=== PATIENT | male | born 1945 | race Caucasian/White ===

== ENCOUNTER 2018-05-03 12:04 | Day surgery (SDC) | payer OTHER ==
[2018-05-03] MEDS ORDERED: LR 1,000 ML IV ONE (12:44)
--- NOTE | 2018-05-03 14:07 | PDANEPAE ---
ANE History of Present Illness 72 yo for lower eus ANE Past Medical History - Cardiovascular History Hx Hypertension: Yes Hx Arrhythmias: No Hx Chest Pain: No Hx Coronary Artery / Peripheral Vascular Disease: Yes Hx CHF / Valvular Disease: Yes Hx Palpitations: No Cardiovascular History Comment: Hx AVR - Pulmonary History Hx COPD: No Hx Asthma/Reactive Airway Disease: No Hx Recent Upper Respiratory Infection: No Hx Oxygen in Use at Home: No Hx Sleep Apnea: No Sleep Apnea Screening Result - Last Documented: Positive - Neurologic History Hx Cerebrovascular Accident: No Hx Seizures: No Hx Dementia: No - Endocrine History Hx Diabetes: Yes Endocrine History Comment: PRE-DIABETIC - Renal History Hx Renal Disorders: No - Liver History Hx Hepatic Disorders: No - Neurological & Psychiatric Hx Hx Neurological and Psychiatric Disorders: No - Cancer History Hx Cancer: No - Congenital Disorder History Hx Congenital Disorders: No - GI History Hx Gastrointestinal Disorders: No - Other Health History Other Health History: NONE - Chronic Pain History Chronic Pain: No - Surgical History Prior Surgeries: CABG X 2 W/AVR 2009. NONE SINCE [facility] ANE Review of Systems Review of Systems: - Exercise capacity METS (RN): 4 METS ANE Patient History - Allergies Allergies/Adverse Reactions: Penicillins Allergy (Severe, Verified 04/29/18 15:42) THROAT SWELLING - Home Medications Home Medications: Allopurinol 04/29/18 [Last Taken 05/02/18] Levothyroxine 04/29/18 [Last Taken 05/02/18] Lisinopril 04/29/18 [Last Taken 05/02/18] Metformin HCl 04/29/18 [Last Taken 05/02/18] Metoprolol Tartrate 04/29/18 [Last Taken 05/02/18] Rosuvastatin Calcium 04/29/18 [Last Taken 05/02/18] - NPO status NPO Since - Liquids (Date): 05/03/18 NPO Since - Liquids (Time): 09:00 NPO Since - Solids (Date): 05/02/18 NPO Since - Solids (Time): 09:00 - Smoking Hx Smoking Status: Never smoked - Family Anes Hx Family Hx Anesthesia Complications: none ANE Labs/Vital Signs - Labs Result Diagrams: 05/03/18 13:28 - Vital Signs Blood Pressure: 148/86 Heart Rate: 84 Respiratory Rate: 16 O2 Sat (%): 94 Height: 5 ft 8 in Weight: 97.522 kg ANE Physical Exam - Airway Neck exam: FROM Mallampati Score: Class 3 Mouth exam: normal dental/mouth exam - Pulmonary Pulmonary: no respiratory distress - Cardiovascular Cardiovascular: regular rate and rhythym - ASA Status ASA Status: III ANE Anesthesia Plan Anesthesia Plan: GA with mask
[2018-05-03] MEDS ORDERED: PROPOFOL/EMULSION 500 MG/50 ML BOTTLE IV ONE (14:09)
[2018-05-03] MEDS ORDERED: NALOXONE HCL 0.4 MG/ML INJ IVP PRN (14:26)
--- NOTE | 2018-05-03 15:01 | PDGENHP ---
History & Physical Chief Complaint: rectal mass History of Present Illness: 72 year old male presents for evaluation of rectal mass Pertinent Past, Social, Family History: See anesthesiology note for details. Relevant Physical Exam: HEENt: anicteric. CV: RRR +s1s2. lungs; CTAB. Abd: soft, nt, + bs. Cardiorespiratory Assessment: ASA 3
[2018-05-03] MEDS ORDERED: INDOMETHACIN 50 MG SUPP PR PRN (15:03)
[2018-05-03] MEDS ORDERED: NS 500 ML IV SCH (15:15)
--- NOTE | 2018-05-03 18:23 | POSTANESTH ---
Post Anesthetic Evaluation Cardiovascular Status: Normal, Stable Respiratory Status: Normal, Stable Level of Consciousness/Mental Status: Can Participate in Eval Pain Control: Adequate, Prn Tx Ordered Nausea/Vomiting Control: Adequate, Prn Tx Ordered Complications Possibly Related to Anesthesia: None Noted
[2018-05-03 18:47] VITALS: BP 155/97
--- NOTE | 2018-05-11 08:03 | GIREPORT ---
[facility] - Endoscopy Department Patient Name: Silvestre Peterson Procedure Date: 05/03/2018 2:00 PM Patient Type: Outpatient Attending MD/ ER Physician: Earl Patel MD Procedure: Lower EUS Indications: Pre-treatment staging for anorectal carcinoma Patient Profile: 72 year old male presents for evaluation of a polypoid lesion in the rectosigmoid colon. Providers: Earl Patel MD Medicines: Monitored Anesthesia Care Complications: No immediate complications. Estimated blood loss: None. Description of Procedure: After obtaining informed consent, the endoscope was passed under direct vision. Throughout the procedure, the patient's blood pressure, pulse, and oxygen saturations were monitored continuously. The Endosonoscope was introduced through the anus and advanced to the sigmoid colon for ultrasound. The lower EUS was accomplished without difficulty. The brice ent tolerated the procedure well. The quality of the bowel preparation was good. The Colonoscope with irrigation channel was introduced through the anus and advanced to the sigmoid colon for ultrasound. Findings: The perianal and digital rectal examinations were normal. Pertinent negatives include no palpable rectal lesions. Endoscopic Finding : A frond-like/villous, fungating and polypoid large mass was found in th e proximal rectum at 11cms from the anal verge and extended proximally ab out 10cms. The mass was partially circumferential (involving one-half of th e lumen circumference). The mass measured ten cm in length. Biopsies were taken with a cold forceps for histology. Biopsies were taken with a col d forceps for histology. Area just distal was tattooed with an injection of 5 mL of Millie ink. Diverticula were found in the sigmoid colon. Endosonographic Finding : A hypoechoic mass was found in the rectum. The mass was encountered at 11.0 cm (from the anal verge). The endosonographic borders were well-defined mainly. However, in a focal plane there was breakthrough through the musuclaris propria which may represent a T3 lesion. The mass measured 9 mm (in maximum length). A 5mm peritumoral lymph node was noted. It was round with distinct michael ins. Reactive vs. malignant? Not amenable to FNA due to peritumoral location . Estimated Blood Loss: Estimated blood loss was minimal. 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 Biopsied. Tattooed. - Diverticulosis in the sigmoid colon. - Rectal mass was visualized endosonographically. - No lymph nodes were seen in the perirectal and perisigmoid region dur ing endosonographic examination. - Stage focal [id number] if this is malignant Recommendation: - Discharge patient to home (with escort). - Advance diet as tolerated. - Continue present medications. - Await path results. - Follow up with surgery. - Thank you for allowing me to participate in the care of your patient. Attending Participation: I personally performed the entire procedure. Earl Patel MD Earl Patel MD 05/11/2018 8:03:43 AM This report has been signed electronicallyEarl Patel MD Number of Addenda: 0 Note Initiated On: 05/03/2018 2:00 PM Total Procedure Duration Time 0 hours 13 minutes 10 seconds [email or web address]
== END 2018-05-03 17:17 | disposition home or self-care (01) ==
LOC: FSGY 12:04
PROVIDERS: ATTEND Internal Medicine Gastroenterology
DX: D12.8 Benign neoplasm of rectum (principal); R59.0 Localized enlarged lymph nodes; K57.30 Diverticulosis of large intestine without perforation or abscess without bleeding; I10 Essential (primary) hypertension; R73.03 Prediabetes; I25.10 Atherosclerotic heart disease of native coronary artery without angina pectoris; Z95.1 Presence of aortocoronary bypass graft; Z88.0 Allergy status to penicillin
CPT/HCPCS: J2704

== ENCOUNTER → 2018-05-26 | Outpatient (CLI) | payer OTHER | LOC: BHFA 08:30 | PROVIDERS: ATTEND Internal Medicine Cardiovascular Disease | DX: Z01.818 Encounter for other preprocedural examination (principal); R94.31 Abnormal electrocardiogram [ECG] [EKG]; I25.10 Atherosclerotic heart disease of native coronary artery without angina pectoris | CPT/HCPCS: 78452; 93017; A9500; J2785 ==

== ENCOUNTER → 2018-05-27 | Outpatient (CLI) | payer OTHER | LOC: BHFA 08:30 | PROVIDERS: ATTEND Internal Medicine Cardiovascular Disease | DX: Z95.2 Presence of prosthetic heart valve (principal) ==